=== PATIENT | female | born 1940 | race African-American/Black ===

== ENCOUNTER 2017-02-12 20:48 | Emergency (ER) | payer MEDICARE, MEDICAID ==
[~2017-02-12] VITALS: Ht 170.2 cm; Wt 68.0 kg
[2017-02-12] MEDS ORDERED: MAGNESIUM/ALUMINUM HYDROXIDE/SIMETHICONE 30ML UDC PO STA (22:13)
[2017-02-12] MEDS ORDERED: FAMOTIDINE 20MG/2ML VIAL IV STA (22:13)
[2017-02-12] MEDS ORDERED: VISCOUS LIDOCAINE 2% 15 ML UDC MM ONE (22:15)
[2017-02-12 22:47] LABS: BASOPHILS % 0.6 % (0.0-2.0); EOSINOPHILS % 2.1 % (0.0-5.0); HEMATOCRIT. 42.3 % (36.0-48.0); HEMOGLOBIN. 13.8 g/dL (12.0-16.0); LYMPHOCYTES % 25.4 % (20.0-50.0); MEAN CORPUSCULAR HEMOGLOBIN 28.3 pg (28.0-32.0); MEAN CORPUSCULAR VOLUME 86.7 fL (81.0-99.0); MEAN PLATELET VOLUME 8.1 fl (7.4-10.4); MONOCYTES % 14.4 % (2.0-8.0); NEUTROPHILS % 57.5 % (40.0-76.0); PLATELET 182 x1000/uL (130-400); RED BLOOD CELL COUNT 4.89 mill/uL (4.2-5.4); RED CELL DISTRIBUTION WIDTH 17.2 % (11.6-14.6)
[2017-02-12 22:51] LABS: CHLORIDE 103 mEq/L (98-107)
[2017-02-12 22:54] LABS: INR 1.1; PARTIAL THROMBOPLASTIN TIME 30.6 sec (24.0-34.0); PROTHROMBIN TIME 11.8 sec
[2017-02-12 23:01] LABS: CARBON DIOXIDE 29 mEq/L (21-32)
[2017-02-13] MEDS ORDERED: ACETAMINOPHEN WITH CODEINE 300/30MG TABLET PO NR (01:00)
[2017-02-13 01:17] LABS: CLARITY URINE CLEAR (CLEAR); COLOR URINE YELLOW (YELLOW); GLUCOSE URINE NEGATIVE (NEGATIVE); KETONES URINE NEGATIVE (NEGATIVE); LEUKOCYTE ESTERASE URINE NEGATIVE (NEGATIVE); NITRITE URINE NEGATIVE (NEGATIVE); OCCULT BLOOD URINE NEGATIVE (NEGATIVE); PH URINE 6.5 (4.5-8.0); PROTEIN URINE 2+ (NEGATIVE); SPECIFIC GRAVITY URINE 1.017 (1.005-1.030); UROBILINOGEN URINE 0.2 E.U./dL (0.2-1.0)
[2017-02-13 02:31] VITALS: BP 128/65
== END 2017-02-13 03:13 | disposition home or self-care (01) ==
LOC: ER 21:25
DX: K29.00 Acute gastritis without bleeding (principal); K27.9 Peptic ulcer, site unspecified, unspecified as acute or chronic, without hemorrhage or perforation; I48.91 Unspecified atrial fibrillation; J44.9 Chronic obstructive pulmonary disease, unspecified; E11.9 Type 2 diabetes mellitus without complications; M19.90 Unspecified osteoarthritis, unspecified site; E87.6 Hypokalemia; Z85.3 Personal history of malignant neoplasm of breast; Z90.12 Acquired absence of left breast and nipple; Z95.0 Presence of cardiac pacemaker; Z79.01 Long term (current) use of anticoagulants; Z88.6 Allergy status to analgesic agent
CPT/HCPCS: 36415; 76705; 80053; 81001; 83690; 85025; 85610; 85730; 96374; 99285; J3490

== ENCOUNTER 2019-09-22 17:44 | Inpatient (IN) | payer BC, MEDICAID ==
[~2019-09-22] VITALS: Ht 165.1 cm; Wt 57.6 kg
[2019-09-22] MEDS: LORAZEPAM 2MG/ML CPJ IV ONE (19:15)
[2019-09-22] MEDS ORDERED: IPRATROPIUM/ALBUTEROL 0.5-3(2.5)MG/3ML NEB HHN ONE (19:15)
[2019-09-22 19:59] LABS: BASOPHILS % 0.7 % (0.0-2.0); EOSINOPHILS % 2.3 % (0.0-5.0); HEMATOCRIT. 40.8 % (36.0-48.0); HEMOGLOBIN. 13.6 g/dL (12.0-16.0); LYMPHOCYTES % 27.1 % (20.0-50.0); MEAN CORPUSCULAR HEMOGLOBIN 30.1 pg (28.0-32.0); MEAN CORPUSCULAR VOLUME 90.7 fL (81.0-99.0); MEAN PLATELET VOLUME 7.6 fl (7.4-10.4); MONOCYTES % 10.7 % (2.0-8.0); NEUTROPHILS % 59.2 % (40.0-76.0); PLATELET 184 x1000/uL (130-400); RED CELL DISTRIBUTION WIDTH 14.3 % (11.6-14.6)
[2019-09-22 20:01] LABS: CHLORIDE 103 mEq/L (98-107)
[2019-09-22 20:04] LABS: INR 1.1; PARTIAL THROMBOPLASTIN TIME 31.8 sec (23.4-31.0); PROTHROMBIN TIME 11.6 sec (9.6-11.0)
[2019-09-22 20:06] LABS: ETHANOL BLOOD < 10 mg/dL
[2019-09-22 20:40] LABS: CLARITY URINE CLEAR (CLEAR); COLOR URINE YELLOW (YELLOW); KETONES URINE NEGATIVE (NEGATIVE); LEUKOCYTE ESTERASE URINE 1+ (NEGATIVE); NITRITE URINE NEGATIVE (NEGATIVE); OCCULT BLOOD URINE NEGATIVE (NEGATIVE); PH URINE 5.5 (4.5-8.0); PROTEIN URINE 2+ (NEGATIVE); SPECIFIC GRAVITY URINE 1.015 (1.005-1.030); UROBILINOGEN URINE 0.2 E.U./dL (0.2-1.0)
[2019-09-22 21:04] LABS: *AMPHETAMINES SCREEN URINE NEGATIVE (NEGATIVE); *BARBITURATES SCREEN URINE NEGATIVE (NEGATIVE)
[2019-09-22 21:05] LABS: *BENZODIAZEPINES SCREEN URINE NEGATIVE (NEGATIVE); *COCAINE SCREEN URINE NEGATIVE (NEGATIVE); CANNABINOID URINE SCREEN NEGATIVE (NEGATIVE); METHADONE URINE SCREEN NEGATIVE (NEGATIVE); OPIATES URINE SCREEN PRESUMTIVE POSITIVE (NEGATIVE); PHENCYCLIDINE URINE SCREEN NEGATIVE (NEGATIVE)
[2019-09-22] MEDS ORDERED: MAGNESIUM/ALUMINUM HYDROXIDE/SIMETHICONE 30ML UDC PO ONE (22:15)
[2019-09-23 01:20] VITALS: BP 137/75
[2019-09-23] MEDS ORDERED: METO-539 PO (03:27)
[2019-09-23] MEDS ORDERED: AMLO10TA80 PO (03:28)
[2019-09-23] MEDS ORDERED: FURO20TA4 PO (03:59)
[2019-09-23 04:00] VITALS: BP 128/59
[2019-09-23] MEDS ORDERED: ASCO500C18 PO (04:38)
[2019-09-23] MEDS ORDERED: FISH1CAP34 PO (04:38)
[2019-09-23] MEDS ORDERED: XALAO EACHEYE (04:38)
[2019-09-23] MEDS ORDERED: CALC-30 PO (04:38)
[2019-09-23] MEDS ORDERED: ACET-2708 PO (04:38)
[2019-09-23] MEDS ORDERED: POTA-9 PO (04:38)
[2019-09-23] MEDS ORDERED: DEXT15SY3 PO (04:38)
[2019-09-23] MEDS ORDERED: MULT-1146 PO (04:38)
[2019-09-23] MEDS ORDERED: HYDR-4001 PO (04:38)
[2019-09-23] MEDS ORDERED: NEOM28.3 TP (04:38)
[2019-09-23] MEDS ORDERED: DIPH1TAB PO (04:54)
[2019-09-23] MEDS ORDERED: DEXT30SU87 PO (04:54)
[2019-09-23] MEDS ORDERED: D ME PO (04:54)
[2019-09-23] MEDS ORDERED: CHLO25TA22 PO (04:54)
[2019-09-23] MEDS ORDERED: LOPE2CAP PO (04:54)
[2019-09-23] MEDS ORDERED: HYDR28OI2 TP (04:54)
[2019-09-23] MEDS ORDERED: TC1U15 TOP (04:54)
[2019-09-23] MEDS ORDERED: [UNRECOGNIZED DRUG - CODE] TP (04:54)
[2019-09-23] MEDS ORDERED: DEXTROSE 50% WATER 50ML SYRINGE IV PRN (05:30)
[2019-09-23 08:00] VITALS: BP 144/80
[2019-09-23] MEDS: INSULIN LISPRO 100 UNITS/ML SUBCUT SCH ×4 (08:10→21:00)
[2019-09-23] MEDS: BLOOD SUGAR DIAGNOSTIC STRIP TEST SCH ×4 (08:17→21:08)
[2019-09-23] MEDS: IPRATROPIUM/ALBUTEROL 0.5-3(2.5)MG/3ML NEB HHN SCH ×2 (09:14→12:08)
[2019-09-23] MEDS: POTASSIUM CHLORIDE 10MEQ TABLET SR PO SCH (09:20)
[2019-09-23] MEDS: METOPROLOL TARTRATE 50MG TABLET PO SCH ×2 (09:20→21:00)
[2019-09-23] MEDS: AMLODIPINE 10MG TABLET PO SCH (09:20)
[2019-09-23] MEDS: ENOXAPARIN 40MG/0.4ML SYR SUBCUT SCH (09:21)
[2019-09-23 12:00] VITALS: BP 130/95
[2019-09-23] MEDS ORDERED: CHLORPROMAZINE HCL 25 MG TABLET PO SCH (16:00)
[2019-09-23] MEDS: LEVOFLOXACIN 500MG PREMIX 100 ML IV SCH (17:00)
[2019-09-23] MEDS ORDERED: CEFTRIAXONE 1 G PREMIX 50 ML IV SCH (18:00)
[2019-09-23] MEDS: CHLORPROMAZINE HCL 10 MG TABLET PO SCH (18:37)
[2019-09-23] MEDS: ACETAMINOPHEN 650MG/20.3ML UDC PO PRN (18:38)
[2019-09-23] MEDS ORDERED: FUROSEMIDE 20MG/2ML VIAL IVP NR (19:00)
[2019-09-23 20:00] VITALS: BP 128/66
[2019-09-23] MEDS ORDERED: AZITHROMYCIN 500 MG in DEXT 5% WATER 250 ML IV SCH (20:00)
[2019-09-23] MEDS: IPRATROPIUM/ALBUTEROL 0.5-3(2.5)MG/3ML NEB HHN PRN (20:13)
[2019-09-23] MEDS: LATANOPROST 0.005% OPHTH DROPS 2.5ML EACHEYE SCH (21:00)
[2019-09-24] VITALS: BP 115/65
[2019-09-24 04:00] VITALS: BP 126/66
[2019-09-24] MEDS: BLOOD SUGAR DIAGNOSTIC STRIP TEST SCH ×4 (07:40→21:51)
[2019-09-24 08:00] VITALS: BP_SYST 125; BP_SYST 92; BP_DIAS 51; BP_DIAS 80
[2019-09-24] MEDS: INSULIN LISPRO 100 UNITS/ML SUBCUT SCH ×4 (08:10→21:00)
[2019-09-24] MEDS: ENOXAPARIN 40MG/0.4ML SYR SUBCUT SCH (09:48)
[2019-09-24] MEDS: CHLORPROMAZINE HCL 10 MG TABLET PO SCH ×2 (09:49→17:00)
[2019-09-24] MEDS: METOPROLOL TARTRATE 50MG TABLET PO SCH ×2 (09:49→21:00)
[2019-09-24] MEDS: AMLODIPINE 10MG TABLET PO SCH (09:50)
[2019-09-24] MEDS: POTASSIUM CHLORIDE 10MEQ TABLET SR PO SCH (09:50)
[2019-09-24 10:21] LABS: BASOPHILS % 0.5 % (0.0-2.0); EOSINOPHILS % 2.3 % (0.0-5.0); HEMATOCRIT. 41.7 % (36.0-48.0); HEMOGLOBIN. 13.5 g/dL (12.0-16.0); LYMPHOCYTES % 18.9 % (20.0-50.0); MEAN CORPUSCULAR HEMOGLOBIN 29.6 pg (28.0-32.0); MEAN CORPUSCULAR VOLUME 91.3 fL (81.0-99.0); MONOCYTES % 10.4 % (2.0-8.0); NEUTROPHILS % 67.9 % (40.0-76.0); PLATELET 192 x1000/uL (130-400); RED BLOOD CELL COUNT 4.57 mill/uL (4.2-5.4); RED CELL DISTRIBUTION WIDTH 14.4 % (11.6-14.6)
[2019-09-24 10:25] LABS: CHLORIDE 100 mEq/L (98-107)
[2019-09-24 12:00] VITALS: BP 148/78
[2019-09-24] MEDS ORDERED: POTASSIUM CHLORIDE 20MEQ TABLET SR PO NR (12:00)
[2019-09-24] MEDS: IPRATROPIUM/ALBUTEROL 0.5-3(2.5)MG/3ML NEB HHN PRN (12:08)
[2019-09-24] MEDS: ACETAMINOPHEN 650MG/20.3ML UDC PO PRN (13:39)
[2019-09-24] MEDS ORDERED: METHYLPREDNISOLONE SOD SUCC 40 MG/ML VIAL IV NR (15:15)
[2019-09-24] MEDS ORDERED: HYDROCODONE/ACETAMINOPHEN 5/325MG TABLET PO PRN (15:15)
[2019-09-24] MEDS ORDERED: HYDRALAZINE 20MG/ML VIAL IV PRN (15:15)
[2019-09-24 15:49] LABS: BG BASE EXCESS 2.2 mmol/L (-2.0-2.0); BG CARBOXYHEMOGLOBIN 0.1 % (0.5-1.5); BG HCO3 ACT 27.4 mmol/L (22.0-26.0); BG METHEMOGLOBIN 0.3 % (0.0-1.5); BG OXYHEMOGLOBIN 91.6 % (94.0-97.0); BG PCO2 44.7 mmHg (35.0-45.0); BG PH 7.405 (7.350-7.450); BG PO2 62.9 mmHg (75.0-100.0); BG SAMPLE SITE RIGHT BRACHIAL; BG TOTAL HEMOGLOBIN 12.8 g/dL (12.0-18.0); BG VENT MODE ROOM AIR
[2019-09-24 16:00] VITALS: BP 149/80
[2019-09-24] MEDS: LEVOFLOXACIN 500MG PREMIX 100 ML IV SCH (17:00)
[2019-09-24] MEDS: ALBUTEROL (0.083%) 2.5MG/3ML NEB HHN SCH (20:08)
[2019-09-24] MEDS: BUDESONIDE 0.5MG/2ML NEB HHN SCH (20:08)
[2019-09-24] MEDS ORDERED: HALOPERIDOL LACTATE 5MG/ML VIAL IM NR (20:45)
[2019-09-24] MEDS: LATANOPROST 0.005% OPHTH DROPS 2.5ML EACHEYE SCH (21:00)
[2019-09-25] MEDS: ALBUTEROL (0.083%) 2.5MG/3ML NEB HHN SCH ×2 (01:12→11:09)
[2019-09-25] MEDS: BLOOD SUGAR DIAGNOSTIC STRIP TEST SCH (07:40)
[2019-09-25] MEDS: INSULIN LISPRO 100 UNITS/ML SUBCUT SCH (08:10)
[2019-09-25] MEDS ORDERED: POTASSIUM CHLORIDE 20MEQ TABLET SR PO NR (10:45)
[2019-09-25] MEDS ORDERED: FUROSEMIDE 40MG/4ML VIAL IVP NR (10:45)
[2019-09-25] MEDS: BUDESONIDE 0.5MG/2ML NEB HHN SCH (11:09)
[2019-09-25] MEDS ORDERED: POTA10CA42 MT (11:15)
[2019-09-25] MEDS ORDERED: METO-539 MT (11:15)
[2019-09-25] MEDS ORDERED: AMLO5TAB4 MT (11:15)
[2019-09-25] MEDS ORDERED: FURO-152 MT (11:15)
[2019-09-25] MEDS ORDERED: ALBU90AE INH (11:15)
[2019-09-25] MEDS ORDERED: FLUT1AER INH (11:15)
[2019-09-25] MEDS ORDERED: LEVO500T2 PO (11:15)
== END 2019-09-25 12:08 | disposition left against medical advice (07) | DRG 205 ==
LOC: ER 17:44 → 7WST 22:10 → EDBEDREQ 22:16
PROVIDERS: ADMIT Internal Medicine; ATTEND Internal Medicine
DX: M94.0 Chondrocostal junction syndrome [Tietze] (principal); J18.9 Pneumonia, unspecified organism; E11.9 Type 2 diabetes mellitus without complications; E87.6 Hypokalemia; F41.9 Anxiety disorder, unspecified; I10 Essential (primary) hypertension; I48.91 Unspecified atrial fibrillation; M19.90 Unspecified osteoarthritis, unspecified site; Z95.810 Presence of automatic (implantable) cardiac defibrillator; Z85.3 Personal history of malignant neoplasm of breast; J44.9 Chronic obstructive pulmonary disease, unspecified
CPT/HCPCS: 36415; 36600; 71045; 71250; 76700; 80048; 80053; 80305; 80307; 80320; 80329; 81003; 82375; 82805; 82962; 83036; 83605; 83880; 84145; 84443; 84484; 85025; 93005; 93306; 93970; 94640; 97162; 99285; J0456; J0696; J1650; J1815; J1940; J1956; J2060; J7060; J7626; Q0161; G0480